=== PATIENT | male | born 1990 | race American Indian/Alaskan Native ===

== ENCOUNTER 2019-12-27 20:50 | Emergency (ER) | payer SELFPAY ==
--- NOTE | 2019-12-27 21:38 | Emergency Department Report ---
ED General Adult HPI - General Stated complaint: FEVER BODYACHE Time Seen by Provider: 12/27/19 21:37 - History of Present Illness Initial comments: 29 y.o. male with history of HIV presents with complaint of fever and body aches for the past two days. Patient complains of a cough with yellowish phlegm. Patient states that he is having body aches. Patient denies any syncope. Patient states his lower body is hurting. Patient denies any neck stiffness. Patient has a mild headache as well. Patient states he took no medication to alleviate his symptoms prior to arrival in the emergency department. Patient denies any recent travel. Patient states he has no contacts that have been recently quarantined. - Related Data Previous Rx's Medication Instructions Recorded Last Taken Type Acetaminophen [Tylenol] 325 mg PO Q8HR #21 capsule 12/28/19 Unknown Rx Doxycycline Hyclate [Doxycycline 100 mg PO Q12HR #14 tab 12/28/19 Unknown Rx Hyclate TAB] ED Review of Systems ROS: Stated complaint: FEVER BODYACHE Other details as noted in HPI Constitutional: fever, weakness, other (myalgia) Eyes: denies: eye pain, eye discharge, vision change ENT: denies: ear pain, throat pain Respiratory: denies: cough, shortness of breath, wheezing Cardiovascular: denies: chest pain, palpitations Endocrine: no symptoms reported Gastrointestinal: denies: abdominal pain, nausea, diarrhea Genitourinary: denies: urgency, dysuria Musculoskeletal: denies: back pain, joint swelling, arthralgia Skin: denies: rash, lesions Neurological: denies: headache, weakness, paresthesias Psychiatric: denies: anxiety, depression Hematological/Lymphatic: denies: easy bleeding, easy bruising ED Past Medical Hx - Medications Home Medications: Home Medications Medication Instructions Recorded Confirmed Last Taken Type Acetaminophen [Tylenol] 325 mg PO Q8HR #21 capsule 12/28/19 Unknown Rx Doxycycline Hyclate [Doxycycline 100 mg PO Q12HR #14 tab 12/28/19 Unknown Rx Hyclate TAB] ED Physical Exam - General General appearance: alert, in no apparent distress, other (Mildly uncomfortable) - Head Head exam: Present: atraumatic, normocephalic - Eye Eye exam: Present: normal appearance - ENT ENT exam: Present: mucous membranes moist - Neck Neck exam: Present: normal inspection, other. Absent: tenderness, meningismus - Respiratory Respiratory exam: Present: normal lung sounds bilaterally. Absent: respiratory distress - Cardiovascular Cardiovascular Exam: Present: regular rate, normal rhythm. Absent: systolic murmur, diastolic murmur, rubs, gallop - GI/Abdominal GI/Abdominal exam: Present: soft, normal bowel sounds - Rectal Rectal exam: Present: deferred - Extremities Exam Extremities exam: Present: normal inspection - Back Exam Back exam: Present: normal inspection - Neurological Exam Neurological exam: Present: alert, oriented X3, CN II-XII intact. Absent: motor sensory deficit - Psychiatric Psychiatric exam: Present: normal affect, normal mood - Skin Skin exam: Present: warm, dry, intact, normal color. Absent: rash ED Course Vital Signs 12/27/19 21:10 Temperature 102.1 F H Pulse Rate 105 H Respiratory 18 Rate Blood Pressure 127/64 O2 Sat by Pulse 98 Oximetry ED Medical Decision Making - Lab Data Result diagrams: 12/27/19 21:46 12/27/19 21:46 - Medical Decision Making Patient was given a fluid bolus of 30 cc/kg upon arrival. Patient has a flu that is negative and a chest x-ray that was negative. Patient to be treated as outpatient for bronchitis but with patient's immunocompromise state in the pres ence of the fever and cough that he describes despite having the normal chest x- ray patient to be put in outpatient database and given instructions as far as for suspected COVID-19 Prophylaxis. - Differential Diagnosis Viral illness; bronchitis; electrolyte abnormality; anemia Critical care attestation.: If time is entered above; I have spent that time in minutes in the direct care of this critically ill patient, excluding procedure time. ED Disposition Clinical Impression: Viral illness, Bronchitis Disposition: [id number] TO HOME OR SELFCARE Is pt being admited?: No Does the pt Need Aspirin: No Condition: Stable Instructions: Acute Bronchitis (ED) Prescriptions: Doxycycline Hyclate [Doxycycline Hyclate TAB] 100 mg PO Q12HR #14 tab Acetaminophen [Tylenol] 325 mg PO Q8HR #21 capsule Time of Disposition: 00:34 Print Language: GREEK
[2019-12-27] MEDS ORDERED: SODIUM CHLORIDE 0.9% 1000 ML IV SOLN IV ONE (21:39)
[2019-12-27] MEDS ORDERED: cefTRIAXone/NS 1 GM/50 ML 1 GM/50 ML BAG IV ONE (21:41)
[2019-12-27 22:03] LABS: Hematocrit 30.5 % (35.5-45.6); Hemoglobin 10.2 gm/dl (11.8-15.2); Mean Corpuscular HGB Conc 33 % (32-34); Mean Corpuscular Volume 89 fl (84-94); Platelet Count 120 K/mm3 (140-440); Red Blood Count 3.42 M/mm3 (3.65-5.03); Red Cell Distribution Width 15.1 % (13.2-15.2)
[2019-12-27 22:42] LABS: Alanine Aminotransferase 40 units/L (7-56); Albumin 3.8 g/dL (3.9-5); BUN/Creatinine Ratio 13; Blood Urea Nitrogen 13 mg/dL (9-20); Calcium 8.7 mg/dL (8.4-10.2); Hemolysis Index 9
--- NOTE | 2019-12-27 23:04 | XRay Report ---
CHEST 1 VIEW INDICATION / CLINICAL INFORMATION: shortness of breath. COMPARISON: None available. FINDINGS: SUPPORT DEVICES: None. HEART / MEDIASTINUM: No significant abnormality. LUNGS / PLEURA: No significant pulmonary or pleural abnormality. No pneumothorax. ADDITIONAL FINDINGS: No significant additional findings. IMPRESSION: 1. No significant change Signer Name: Delgado Beck MD Signed: 12/27/2019 11:00 PM Workstation Name: [id number]
[2019-12-28] MEDS ORDERED: ACETAMINOPHEN 500 MG TAB PO ONE (00:25)
[2019-12-28 00:57] VITALS: BP 104/76
== END 2019-12-27 21:37 | disposition home or self-care (01) ==
LOC: ED 20:50
DX: J40 Bronchitis, not specified as acute or chronic (principal); B34.9 Viral infection, unspecified
CPT/HCPCS: 36415; 71045; 80053; 82140; 85027; 87040; 87400; 96365; 99284; J0696; J7030